=== PATIENT | male | born 1995 | race Caucasian/White ===

== ENCOUNTER 2022-11-29 12:03 | Emergency (ER) | payer BC ==
[2022-11-29] MEDS ORDERED: IBUPROFEN 200 MG TAB PO ONE (12:54)
[2022-11-29] MEDS ORDERED: TDAP (DIPHTH,PERTUSS(ACELL),TET VAC) 0.5 ML VIAL IMVAC ONE (13:02)
--- NOTE | 2022-11-29 13:27 | RAD REPORT ---
EXAM DESCRIPTION: RAD - Foot Left 2 View - 11/29/2022 1:19 pm CLINICAL HISTORY: sting ray;Animal bite Pain and swelling COMPARISON: No comparisons FINDINGS: No fracture or dislocation is seen. No radiopaque foreign body. No soft tissue gas.
--- NOTE | 2022-11-29 14:56 | ER ---
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 No ll1 bleeding. Did not see animal in water. Coronavirus screen: Vaccine status: Patient reports receiving the 2nd dose of the covid vaccine. Client denies travel out of the [place] in the last 14 days. At this time, the client does not indicate any symptoms associated with coronavirus-19. Ebola Screen: Patient denies travel to an Ebola-affected area in the 21 days before illness onset. Initial Sepsis Screen: Does the patient meet any 2 criteria? No. Patient's initial sepsis screen is negative. Does the patient have a suspected source of infection? Yes: Skin breakdown/wound. Risk Assessment: Do you want to hurt yourself or someone else? Patient reports no desire to harm self or others. Onset of symptoms was November 29, 2022. 12:17 Method Of Arrival: Ambulatory ll1 12:17 Acuity: TRIP 4 ll1 Triage Assessment: 12:18 General: Appears uncomfortable, Behavior is calm, cooperative, appropriate for age. ll1 Pain: Complains of pain in left foot Pain currently is 7 out of 10 on a pain scale. Quality of pain is described as aching, throbbing. Derm: Reports possible FB L foot. Musculoskeletal: Circulation, motion, and sensation intact. Capillary refill < 3 seconds, Reports pain in left foot. 12:19 Injury Description: Abrasion Foreign body. ll1 Historical: - Allergies: 12:17 No Known Allergies; ll1 - PMHx: 12:17 None; ll1 - PSHx: 12:17 Appendectomy; ll1 - Immunization history:: Client reports receiving the 2nd dose of the Covid vaccine. - Social history:: Smoking status: Patient denies any tobacco usage or history of. Screenin:36 [facility] ED Fall Risk Assessment (Adult) History of falling in the last 3 months, ss including since admission No falls in past 3 months (0 pts). Abuse screen: Denies threats or abuse. Denies injuries from another. Nutritional screening: No deficits noted. Tuberculosis screening: Never had TB. Assessment: 12:35 Reassessment: Placed affected foot in warm water. Pt reports almost instant relief. ss Vital Signs: 12:17 BP 135 / 102; Pulse 95; Resp 17; Temp 97.7; Pulse Ox 100% on R/A; Weight 81.65 kg; ll1 Height 6 ft. 0 in. ; Pain 7/10; 12:17 Body Mass Index 24.41 (81.65 kg, 182.88 cm) ll1 12:17 Pain Scale: Adult ll1 ED Course: 12:06 Patient arrived in ED. kj1 12:10 Adriana Cunningham NP is PHCP. aj3 12:10 Phoenix Neal DO is Attending Physician. aj3 12:13 Arm band placed on Patient placed in an exam room, on a stretcher. ll1 12:18 Triage completed. ll1 12:36 Patient has correct armband on for positive identification. Bed in low position. Adult ss w/ patient. 12:48 Lakia Lambert, RN is Primary Nurse. ss 13:21 Foot Left 2 View XRAY In Process Unspecified. EDMS 15:07 No provider procedures requiring assistance completed. Patient did not have IV access ss during this emergency room visit. Administered Medications: 12:48 Drug: Ibuprofen PO 600 mg Route: PO; ss 13:04 Drug: Boostrix Tdap IM 0.5 ml {Note: E3594 05/21/23.} Route: IM; Site: left deltoid; ss Medication: 13:05 Vaccine Information Statement (VIS) provided today. Questions and/or concerns ss addressed. VIS edition date: December 2019. Outcome: 14:56 Discharge ordered by . aj3 15:07 Discharged to home ambulatory. ss 15:07 Condition: good 15:07 Discharge instructions given to patient, family, Instructed on discharge instructions, follow up and referral plans. medication usage, wound care, Demonstrated understanding of instructions, follow-up care, medications, Prescriptions given X 1. 15:08 Patient left the ED. ss Signatures: Dispatcher [employer] EDNV Lakia Lambert, LIT RN Daphney Whitaker kj1 Omari Irby, RN RN ll1 Adriana Cunningham, MANAGER DOMESTIC MANAGER DOMESTIC aj3
--- NOTE | 2022-11-29 14:56 | EDPHYS ---
Physician Documentation [facility] Name: Jeremy Quinn Age: 27 yrs Sex: Male : 1995 Arrival Date: 11/29/2022 Time: 12:03 Bed 10 Private MD: ED Physician Phoenix Neal HPI: 11/29 12:30 This 27 yrs old Male presents to ER via Ambulatory with complaints of POSIBLE STINGRAY aj3 BITE. 12:30 Patient presenting with pain to left foot [place] He denies seeing any barbs remaining in his foot. No reports of any other injury. His Tdap status is unknown.. Historical: - Allergies: 12:17 No Known Allergies; ll1 - PMHx: 12:17 None; ll1 - PSHx: 12:17 Appendectomy; ll1 - Immunization history:: Client reports receiving the 2nd dose of the Covid vaccine. - Social history:: Smoking status: Patient denies any tobacco usage or history of. ROS: 12:30 Constitutional: Negative for fever, chills, and weight loss, Cardiovascular: Negative aj3 for chest pain, palpitations, and edema, Respiratory: Negative for shortness of breath, cough, wheezing, and pleuritic chest pain, Abdomen/GI: Negative for abdominal pain, nausea, vomiting, diarrhea, and constipation, Neuro: Negative for syncope, headache, weakness, numbness, tingling, and seizure. 12:30 MS/extremity: Positive for pain, Left foot. 12:30 Skin: Positive for puncture. Exam: 12:30 Constitutional: This is a well developed, well nourished patient who is awake, alert, aj3 and in no acute distress. Cardiovascular: Regular rate and rhythm with a normal S1 and S2. No gallops, murmurs, or rubs. Normal PMI, no JVD. No pulse deficits. Respiratory: Lungs have equal breath sounds bilaterally, clear to auscultation and percussion. No rales, rhonchi or wheezes noted. No increased work of breathing, no retractions or nasal flaring. Abdomen/GI: Soft, non-tender, with normal bowel sounds. No distension or tympany. No guarding or rebound. No evidence of tenderness throughout. Neuro: Awake and alert, GCS 15, oriented to person, place, time, and situation. Motor strength 5/5 in all extremities. Sensory grossly intact. Normal gait. 12:30 Musculoskeletal/extremity: Tenderness to plantar region of left foot. 12:30 Skin: Small puncture wound noted to plantar region of left foot. Vital Signs: 12:17 BP 135 / 102; Pulse 95; Resp 17; Temp 97.7; Pulse Ox 100% on R/A; Weight 81.65 kg; ll1 Height 6 ft. 0 in. ; Pain 7/10; 12:17 Body Mass Index 24.41 (81.65 kg, 182.88 cm) ll1 12:17 Pain Scale: Adult ll1 MDM: 12:35 Differential diagnosis: Abrasion, laceration, foreign body, cellulitis. aj3 12:43 Patient medically screened. aj3 14:00 Data reviewed: vital signs, nurses notes, radiologic studies. Independent aj3 interpretation of the following test(s) in the Emergency Department X-Ray: My interpretation is No foreign body noted. Historians other than the Patient: EMS: . Counseling: I had a detailed discussion with the patient and/or guardian regarding: the historical points, exam findings, and any diagnostic results supporting the discharge/admit diagnosis, radiology results, the need for outpatient follow up, to return to the emergency department if symptoms worsen or persist or if there are any questions or concerns that arise at home. ED course: Patient presenting with foot pain after stingray sting. Patient's foot placed in hot water and, given Tdap and had negative x-ray. Patient discharged with antibiotics. Discharge instructions for supportive measures, follow-up and ER return precautions given.. 11/29 12:41 Order name: Foot Left 2 View XRAY; Complete Time: 13:48 aj3 Administered Medications: 12:48 Drug: Ibuprofen PO 600 mg Route: PO; ss 13:04 Drug: Boostrix Tdap IM 0.5 ml {Note: [id number] 05/21/23.} Route: IM; Site: left deltoid; ss Disposition: 11/30 13:36 Co-signature as Attending Physician, Phoenix BEST was immediately available on-site ms3 in the Emergency Department for consultation in the care of the patient. Disposition Summary: 11/29/22 14:56 Discharge Ordered Location: Home aj3 Condition: Stable aj3 Diagnosis - Puncture wound without foreign body, left foot aj3 - Toxic effect of contact with stingray, accidental (unintentional), initial encounteraj3 Followup: aj3 - With: Private Physician - When: - Reason: Re-evaluation by your physician Followup: aj3 - With: Emergency Department - When: - Reason: Worsening of condition Discharge Instructions: - Discharge Summary Sheet aj3 - Marine Life Injury, [id number] aj3 Forms: - Work release form aj3 - Medication Reconciliation Form aj3 - Thank You Letter aj3 - Antibiotic Education aj3 - Prescription Opioid Use aj3 - Patient Portal Instructions aj3 Prescriptions: - Cipro 500 mg Oral Tablet - take 1 tablet by ORAL route every 12 hours for 5 days; 10 tablet; Refills: 0, aj3 Product Selection Permitted Signatures: Dispatcher [employer] Lakia Camargo, RN RN ss Omari Irby RN RN ll1 Phoenix Neal, DO ms3 Adriana Cunningham, [employer] EMOTIONAL DISABILITIES TEACHER aj3
[2022-11-29 15:20] VITALS: BP 135/102; TEMP 97.7; O2SAT 100
== END 2022-11-29 15:08 | disposition home or self-care (01) ==
LOC: ER 12:03
DX: S91.332A Puncture wound without foreign body, left foot, initial encounter (principal); T63.511A Toxic effect of contact with stingray, accidental (unintentional), initial encounter
CPT/HCPCS: 96372; 99284